=== PATIENT | female | born 1970 | race Caucasian/White ===

== ENCOUNTER 2021-04-20 16:47 | Emergency (ER) | payer OTHER ==
[~2021-04-20] VITALS: Ht 160 cm; Wt 99.8 kg
[2021-04-20 16:53] VITALS: BP 125/73
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
--- NOTE | 2021-04-20 17:45 | NUR ---
PA at bedside for examination
--- NOTE | 2021-04-20 17:48 | NUR ---
Poison control called regarding nail [place] remover that was spilled in the left eye of a patient. Spoke to Nico from poison control and said to irrigate with water, or normal saline for 10-15minutes irrigation, re-check the eyes and have an opthomalogist on board if any corneal problems persists. Call back #[phone]
[2021-04-20] MEDS ORDERED: NACL 0.9% 1,000 ML IV ONE (18:05)
[2021-04-20] MEDS ORDERED: TETRACAINE HCL/PF 0.5% OPTH 4 ML BTL OP ONE (18:05)
[2021-04-20] MEDS ORDERED: FLUORESCEIN OPTH STRIP 1 MG OP ONE (18:05)
--- NOTE | 2021-04-20 19:15 | NUR ---
RECEIVED REPORT FROM DANA RN FOR CONTINUITY OF CARE
[2021-04-20 19:40] VITALS: BP 125/73
--- NOTE | 2021-04-20 19:40 | NUR ---
Patient discharged with v/s stable. Written and verbal after care instructions given and explained. Patient verbalized understanding. Ambulatory with steady gait. All questions addressed prior to discharge. Advised to follow up with PMD.
== END 2021-04-20 19:40 | disposition home or self-care (01) ==
LOC: MED 16:47
DX: H10.212 Acute toxic conjunctivitis, left eye (principal)
CPT/HCPCS: 96360; 99283; J7030